=== PATIENT | male | born 1990 | race African-American/Black ===

== ENCOUNTER 2016-07-14 10:33 | Emergency (ER) | payer SELFPAY ==
[~2016-07-14] VITALS: Ht 165.1 cm; Wt 59.1 kg
[~2016-07-14 10:33] MED LIST: COLACE 100100 MG/CAP PO; NORCO 325 MG-51 TAB PO; PHENERGAN 25 TA25 MG PO; REGLAN 10MG10 MG/TAB PO
[2016-07-14 10:38] VITALS: BP 116/86; TEMP 97.1
[2016-07-14 11:54] VITALS: PULSE 60
== END 2016-07-14 11:56 | disposition home or self-care (01) ==
LOC: COL.ER 10:33
DX: R10.13 Epigastric pain (principal)
CPT/HCPCS: J1200; J1630; J1885; J2405; J7030

== ENCOUNTER 2017-01-31 07:36 | Emergency (ER) | payer SELFPAY ==
[~2017-01-31] VITALS: Ht 165.1 cm; Wt 59.1 kg
[2017-01-31 07:40] VITALS: BP 149/94; PULSE 77; TEMP 97.7
[2017-01-31 08:13] LABS: BASO % 0.3 % (0.0-2.0); EOS % 0.1 % (0-4.0); HEMATOCRIT 42.1 % (42.0-52.0); HEMOGLOBIN 14.9 g/dl (13.5-18.0); LYMPH # 1.1 (1.2-3.4); LYMPH % 13.7 % (20.0-51.0); MEAN CELL VOLUME 85 fl (80.0-100.0); MEAN CORPUSCULAR HEMOGLOBIN 30 pg (27.0-31.0); MEAN CORPUSCULAR HGB CONC 35 g/dl (33.0-37.0); MONO # 0.6 (0.1-0.6); MONO % 7.5 % (1.7-9.3); PLATELET COUNT 177 K/mm3 (130-400); RED BLOOD COUNT 4.98 M/mm3 (4.20-5.60); REDCELL DISTRIBUTION WIDTH-CV 14.3 % (11.5-14.5); WHITE BLOOD COUNT 7.6 K/mm3 (4.8-10.8)
[2017-01-31 08:22] LABS: ADJUSTED CALCIUM 9.3 mg/dL (8.4-10.2); ALBUMIN 4.6 gm/dL (3.5-5.0); BILIRUBIN,TOTAL 0.7 mg/dL (0.0-1.0); CALCIUM 9.8 mg/dL (8.4-10.2); CREATININE, serum 0.71 mg/dL (0.66-1.25); POTASSIUM 3.9 mmol/L (3.4-5.0); TOTAL PROTEIN 7.6 gm/dL (6.4-8.2)
== END 2017-01-31 08:50 | disposition home or self-care (01) ==
LOC: COL.ER 07:36
PROVIDERS: Physician Assistant
DX: K31.84 Gastroparesis (principal)
CPT/HCPCS: J1170; J2765

== ENCOUNTER 2017-03-01 06:16 | Emergency (ER) | payer SELFPAY ==
[~2017-03-01] VITALS: Ht 165.1 cm; Wt 59.1 kg
[2017-03-01 06:18] VITALS: BP 154/98; PULSE 97; TEMP 97.8
[2017-03-01] MEDS ORDERED: [UNRECOGNIZED DRUG - REMARK] (06:39)
== END 2017-03-01 07:49 | disposition left against medical advice (07) ==
LOC: COL.ER 06:16
DX: K31.84 Gastroparesis (principal); G89.29 Other chronic pain; F12.10 Cannabis abuse, uncomplicated
CPT/HCPCS: J1630; J1885; J2060; J7030

== ENCOUNTER 2017-06-14 10:40 | Emergency (ER) | payer SELFPAY ==
[~2017-06-14] VITALS: Ht 165.1 cm; Wt 59.1 kg
[~2017-06-14 10:40] MED LIST changes: +[UNRECOGNIZED DRUG - REMARK]
[2017-06-14 10:42] VITALS: TEMP 98
[2017-06-14] MEDS ORDERED: NORCO 325 MG-101 TAB PO (12:07)
[2017-06-14 13:32] LABS: COLLECTION METHOD CLEAN CATCH
[2017-06-14 13:37] LABS: MUCOUS Present /lpf; PH 8 (5-8); SQUAMOUS EPITHELIAL 0-2 /hpf; URINE APPEARANCE Clear; URINE BACTERIA None Seen /hpf; URINE BILIRUBIN Negative (NEGATIVE); URINE BLOOD Negative (NEGATIVE); URINE COLOR Yellow; URINE GLUCOSE Negative (NEGATIVE); URINE KETONE Negative (NEGATIVE); URINE LEUKOCYTE ESTERASE Negative (NEGATIVE); URINE NITRATE Negative (NEGATIVE); URINE PROTEIN(semi-quant) Negative (NEGATIVE); URINE RBC 0-2 /hpf; URINE UROBILINOGEN Negative (NEGATIVE)
[2017-06-14 14:21] VITALS: BP 126/80; PULSE 94
== END 2017-06-14 14:19 | disposition home or self-care (01) ==
LOC: COL.ER 10:40
PROVIDERS: Physician Assistant
DX: S00.93XA Contusion of unspecified part of head, initial encounter (principal); S89.92XA Unspecified injury of left lower leg, initial encounter; S89.91XA Unspecified injury of right lower leg, initial encounter; M54.9 Dorsalgia, unspecified; W18.39XA Other fall on same level, initial encounter; W22.8XXA Striking against or struck by other objects, initial encounter; Y92.89 Other specified places as the place of occurrence of the external cause; Y99.0 Civilian activity done for income or pay
CPT/HCPCS: J1170; J1885; J2405